=== PATIENT | male | born 1995 | race African-American/Black ===

== ENCOUNTER 2020-01-26 18:43 | Emergency (ER) | payer SELFPAY ==
[~2020-01-26] VITALS: Ht 190.5 cm; Wt 114.0 kg
[2020-01-26 20:20] VITALS: BP 138/80
== END 2020-01-26 20:21 | disposition home or self-care (01) ==
LOC: ER 18:43
DX: J20.9 Acute bronchitis, unspecified (principal); J06.9 Acute upper respiratory infection, unspecified
CPT/HCPCS: 99281